=== PATIENT | female | born 1970 | race Two or more races ===

== ENCOUNTER → 2024-07-15 | Outpatient (CLI) | payer SELFPAY ==
--- NOTE | 2024-07-15 08:46 | US_ITS ---
PROCEDURE: BREAST LIMITED UNILATERAL 07/15/2024 REASON FOR EXAM: Palpable abnormality in the upper medial aspect of the left breast. TECHNIQUE: Targeted left breast ultrasound. COMPARISON: Comparison is made with prior mammogram dated July 16, 1999. FINDINGS: Left breast ultrasound was targeted to the upper aspect of the left breast.. The palpable abnormality corresponds to a 1.4 cm x 1.3 cm x 0.6 cm isoechoic nodular density suggestive of a lipoma. This is at the 11 o'clock position of the breast at 2 cm from the nipple. Retroareolar examination was performed. There is evidence of retroareolar dilated ducts. US/Breast Limited Unilateral IMPRESSION: Impression: The palpable lump corresponds to a 1.4 cm x 1.3 cm x 0.6 cm lipoma at the 11 o'clock position of the breast at 9 cm from the nipple. Dilated retroareolar ducts. Birads: BI-RADS 2: BENIGN. RECOMMEND ANNUAL MAMMOGRAPHIC SCREENING. Reading Location: [facility]
--- NOTE | 2024-07-15 08:46 | BI_ITS ---
EXAM: DIAG MAMM W/CAD, BILAT 07/15/2024 CLINICAL HISTORY: F, Age 54 y/o, palpable lump in the upper medial aspect of the left breast. No family history. TECHNIQUE: Bilateral Diagnostic digital breast tomosynthesis with 2D and 3D images. Computer aided detection. COMPARISON: Baseline study. FINDINGS: TISSUE DENSITY: The breast tissue is composed of scattered area of fibroglandular density. Bilateral Breast Mammographic Findings: Questionable 2 mm nodule in the lateral retroareolar of the left breast. Sonographic correlation of the palpable lump in the left upper medial aspect of the breast as well as in the lateral retroareolar region of the left breast. BI/DIAG MAMM W/CAD, BILAT IMPRESSION: OVERALL FINAL ASSESSMENT: BIRADS 0 Incomplete: Need additional imaging evaluati on and/or prior mammograms for comparison.. RECOMMENDATION: Sonographic follow-up. A letter with findings and recommendations will be mailed to the patient. Reading Location: [place] [id number]
== END | disposition home or self-care (01) ==
PROVIDERS: PCP Family Medicine; Referring Provider Family Medicine; Visit Provider Family Medicine
DX: N63.25 Unspecified lump in the left breast, overlapping quadrants (principal)
CPT/HCPCS: 76642; 77062; 77066; G0279